=== PATIENT | female | born 1955 | race Caucasian/White ===

== ENCOUNTER → 2023-04-14 12:50 | Outpatient (REF) | payer OTHER, SELFPAY | LOC: RAD 12:50 | PROVIDERS: ATTENDING PHYSICIAN Family Medicine | DX: N20.0 Calculus of kidney (principal); N18.32 Chronic kidney disease, stage 3b; E11.22 Type 2 diabetes mellitus with diabetic chronic kidney disease | CPT/HCPCS: 76770 ==

== ENCOUNTER → 2023-04-22 10:01 | Outpatient (REF) | payer OTHER, SELFPAY | LOC: RCS 10:01 | PROVIDERS: ATTENDING PHYSICIAN Family Medicine | DX: R06.09 Other forms of dyspnea (principal); Z86.718 Personal history of other venous thrombosis and embolism; R09.89 Other specified symptoms and signs involving the circulatory and respiratory systems | CPT/HCPCS: 93306 ==

== ENCOUNTER → 2024-02-27 09:53 | Outpatient (REF) | payer OTHER, SELFPAY ==
[2024-02-27 10:50] LABS: INR 1.57
[2024-02-27 11:25] LABS: Urine Albumin 1+ (Neg - Trace); Urine Bilirubin Negative (Negative); Urine Character Slightly Cloudy (Clear); Urine Color Yellow; Urine Glucose Negative (Negative); Urine Ketone Negative (Negative); Urine Leukocyte Trace (Negative); Urine Nitrite Negative (Negative); Urine Occult Blood 4+ (Negative); Urine Urobilinogen Negative (Neg - 1+)
[2024-02-27 11:42] LABS: Urine Urothelial Cell 0-2 /LPF (FEW)
[2024-02-27 11:43] LABS: Urine Red Blood Cell 80-90 /HPF (0-2)
[2024-02-27 11:44] LABS: Urine Bacteria Moderate (Negative)
== END ==
LOC: REG 09:53
PROVIDERS: ATTENDING PHYSICIAN Family Medicine
DX: R79.1 Abnormal coagulation profile (principal)
CPT/HCPCS: 36415; 81003; 81015; 85610; 87086

== ENCOUNTER → 2024-04-12 10:42 | Outpatient (REF) | payer OTHER, SELFPAY | LOC: HWRAD 10:42 | PROVIDERS: ATTENDING PHYSICIAN Specialist; FAMILY PHYSICIAN Family Medicine | DX: R31.0 Gross hematuria (principal) | CPT/HCPCS: 74176 ==

== ENCOUNTER 2024-06-04 06:18 | Day surgery (SDC) | payer OTHER, SELFPAY ==
[2024-05-15 11:32] LABS: Hematocrit 39.5 % (37.0-47.0); Hemoglobin 12.7 g/dL (12.0-16.0); Mean Corp Hgb Conc. 32.2 g/dL (33.0-37.0); Mean Corpuscular Hgb 29.7 pg (27.0-31.0); Mean Corpuscular Volume 92.3 fL (81.0-99.0); Mean Platelet Volume 10.2 fL (7.4-10.4); Platelet Count 242 10^3/uL (130-400); Red Blood Cell Count 4.28 10^6/uL (4.20-5.40); Red Cell Dist. Width 13.4 % (11.5-14.5); White Blood Cell Count 6.4 10^3/uL (4.8-10.8)
[2024-05-15 12:07] LABS: Blood Urea Nitrogen 41 mg/dl (7-17); Calcium 10.3 mg/dl (8.4-10.2); Carbon Dioxide 22 mmol/L (22-30); Chloride 109 mmol/L (98-107); Glucose 84 mg/dl (70-99); Potassium 5.3 mmol/L (3.5-5.1); Sodium 142 mmol/L (135-145); eGFR 37.49
[2024-05-15 14:10] VITALS: BMI 40.0
[2024-06-04] VITALS (11 sets, daily range): BP systolic 121–145; BP diastolic 67–86; BMI 40.0
[2024-06-04] MEDS: NORMOSOL-R/PLASMALYTE-A 1000 IV (10:48)
[2024-06-04 10:53] LABS: Glucose - Point of Care 88 mg/dl (70-99)
[2024-06-04] MEDS: SUBLIMAZE 25 MCG IV (14:02)
[2024-06-04] MEDS: Pyridium 200 MG PO (14:26)
[2024-06-04] MEDS: DETROL LA 4 MG PO (14:26)
[2024-06-04 14:57] LABS: Glucose - Point of Care 75 mg/dl (70-99)
[2024-06-04] MEDS: ZOFRAN 4 MG IV (15:30)
== END 2024-06-04 15:35 | disposition home or self-care (01) ==
LOC: SDS 06:18
PROVIDERS: ATTENDING PHYSICIAN Specialist; FAMILY PHYSICIAN Family Medicine
DX: N20.0 Calculus of kidney (principal); R31.0 Gross hematuria
CPT/HCPCS: 52356; 36415; 74420; 76000; 80048; 82365; 82962; 85027; 93005; C1758; C1894; C2617

== ENCOUNTER → 2025-01-28 10:21 | Outpatient (REF) | payer OTHER, SELFPAY | LOC: HWRAD 10:21 | PROVIDERS: ATTENDING PHYSICIAN Specialist; FAMILY PHYSICIAN Family Medicine | DX: R31.0 Gross hematuria (principal) | CPT/HCPCS: 74176 ==